=== PATIENT | female | born 1990 | race African-American/Black ===

== ENCOUNTER 2023-01-02 02:12 | Inpatient (IN) ==
[2023-01-02 07:43] LABS: Urine Appearance Clear; Urine Bilirubin Negative (Negative); Urine Blood Negative (Negative); Urine Color Straw; Urine Glucose Negative (Negative); Urine Ketones Negative (Negative); Urine Nitrite Negative (Negative); Urine Protein Negative (Negative); Urine Urobilinogen Negative (Negative)
[2023-01-02 07:47] LABS: Urine Bacteria Absent (Absent); Urine Red Blood Cell Trace(0-2/hpf) (Absent); Urine Squamous Epithelial Cell Present (Absent); Urine White Blood Cell Trace(0-5/hpf) (Absent)
[2023-01-02 08:05] LABS: ABS Basophils 0.1 10^3/uL (0.0-0.1); ABS Eosinophils 0.2 10^3/uL (0.0-0.5); ABS Lymphocytes 2.2 10^3/uL (1.0-4.8); ABS Monocytes 0.7 10^3/uL (0.0-0.9); ABS Neutrophils 6.6 10^3/uL (1.5-7.6); ABS Nucleated RBC 0.01 10^3/ul; Eosinophil % 2.1 %; Hematocrit 36.3 % (35-45); Lymphocyte % 22.3 %; Mean Corpuscular Hgb Conc 33.1 g/dL (31-36); Mean Corpuscular Volume 96.9 fL (80-97); Mean Platelet Volume 9.6 fL (7.5-11.2); Nucleated Red Blood Cells % 0.1 /100 WBC (0.0-0.4); Platelet Count 240 10^3/uL (150-450); Red Blood Count 3.75 10^6/uL (3.63-4.92); Red Cell Distribution Width 13.9 % (12-17); White Blood Count 9.8 10^3/uL (3.8-11.8)
[2023-01-02 08:08] LABS: Urine Benzodiazepine Screen None Detected (None Detect); Urine Cannabinoids Screen None Detected (None Detect); Urine Opiates Screen None Detected (None Detect)
[2023-01-02 08:36] LABS: Albumin 3.6 g/dL (3.2-5.2); Albumin/Globulin Ratio 1.6 (1-3); Calcium 9.3 mg/dL (8.6-10.3); Creatinine, Serum 0.6 mg/dL (0.51-0.95); Globulin 2.2 g/dL (2-4); Potassium 4.1 mmol/L (3.5-5.0); Total Bilirubin 0.4 mg/dL (0.2-1.0); Total Protein 5.8 g/dL (6.4-8.9); Uric Acid 3.7 mg/dL (2.3-6.6)
[2023-01-02] MEDS ORDERED: OBEPIDURAL (200 ML) 200 ML EPIDURAL ONE (12:22)
[2023-01-02] MEDS ORDERED: Lidocaine 1% w EPI 1:200,000 SDV 30 ML VIAL ONE (12:22)
[2023-01-02] MEDS ORDERED: Buffered Lidocaine 1% SYRIN 1 ml ONE (12:23)
[2023-01-02] MEDS ORDERED: Ondansetron 4 mg VIAL 2 MG/ML 2 ml VIAL IV PRN (13:52)
[2023-01-02] MEDS ORDERED: Oxytocin in LR 20,000 MILLI.UNIT/1,000 ML BAG IV SCH (14:00)
[2023-01-02] MEDS ORDERED: Phenylephrine 40 mcg/mL 10mL (400mcg) SYRINGE IV PUSH PRN ×2 (14:12)
[2023-01-02] MEDS ORDERED: Sodium Citrate/Citric Acid LIQ 15 ML UDC PO PRN (14:12)
[2023-01-02] MEDS ORDERED: Lactated Ringers 1000 ml BAG 1,000 ML IV ONE (14:12)
[2023-01-02] MEDS: OBEPIDURAL (200 ML) 200 ML EPIDURAL SCH (14:50)
[2023-01-02 15:32] LABS: Urine Appearance Clear; Urine Bilirubin Negative (Negative); Urine Blood Negative (Negative); Urine Color Straw; Urine Glucose Negative (Negative); Urine Ketones Negative (Negative); Urine Nitrite Negative (Negative); Urine Protein Negative (Negative); Urine Specific Gravity 1.005 (1.002-1.030); Urine Urobilinogen Negative (Negative)
[2023-01-02] MEDS: Lactated Ringers 1000 ml BAG 1,000 ML IV SCH (19:55)
[2023-01-02] MEDS ORDERED: fentaNYL 100 mcg/2 ml 50 MCG/ML VIAL ONE (21:30)
[2023-01-03] MEDS: OBEPIDURAL (200 ML) 200 ML EPIDURAL SCH (02:30)
[2023-01-03] MEDS: Lactated Ringers 1000 ml BAG 1,000 ML IV SCH (07:21)
[2023-01-03] MEDS ORDERED: Calcium Carb (TUMS) 500 mg CHEW TAB PO ONE (08:21)
[2023-01-03] MEDS ORDERED: Glycerin ADULT 2.4 gm SUPP PR PRN (10:53)
[2023-01-03] MEDS ORDERED: Lactated Ringers 1000 ml BAG 1,000 ML IV SCH (11:00)
[2023-01-03] MEDS: Witch Hazel PAD JAR TOPICAL PRN (12:30)
[2023-01-03] MEDS: Dibucaine 1% OINT 28.35 GM TUBE PR PRN (12:30)
[2023-01-03] MEDS ORDERED: Lidocaine 1% VIAL 10 MG/ML VIAL 30 ML ONE (13:08)
[2023-01-03] MEDS ORDERED: Calcium Carb (TUMS) 500 mg CHEW TAB PO PRN (13:27)
[2023-01-04 07:29] LABS: ABS Basophils 0.1 10^3/uL (0.0-0.1); ABS Eosinophils 0.1 10^3/uL (0.0-0.5); ABS Lymphocytes 2.1 10^3/uL (1.0-4.8); ABS Monocytes 0.9 10^3/uL (0.0-0.9); ABS Neutrophils 11.9 10^3/uL (1.5-7.6); Eosinophil % 0.6 %; Hematocrit 26.9 % (35-45); Hemoglobin 9.1 g/dL (11.5-14.3); Mean Corpuscular Hemoglobin 32.5 pg (27-33); Mean Corpuscular Hgb Conc 33.8 g/dL (31-36); Mean Platelet Volume 8.5 fL (7.5-11.2); Platelet Count 182 10^3/uL (150-450); Red Blood Count 2.81 10^6/uL (3.63-4.92); Red Cell Distribution Width 13.6 % (12-17); White Blood Count 15.1 10^3/uL (3.8-11.8)
[2023-01-04 09:16] LABS: Hb A 97.4 % (95.8-98.0); Hb A2 2.6 % (2.0-3.3)
[2023-01-05 07:54] VITALS: BP 115/70
[2023-01-05] MEDS: Witch Hazel PAD JAR TOPICAL PRN (11:36)
[2023-01-05] MEDS: Dibucaine 1% OINT 28.35 GM TUBE PR PRN (11:36)
== END 2023-01-05 11:45 | disposition home or self-care (01) | DRG 560 ==
LOC: MCHOBOUT 02:12 → MCHOB 05:46
PROVIDERS: ADMIT Midwife; ATTEND Advanced Practice Midwife